=== PATIENT | female | born 1955 | race Caucasian/White ===

== ENCOUNTER 2018-05-11 10:37 | Emergency (ER) | payer BC, OTHER ==
[~2018-05-11] VITALS: Ht 170.2 cm; Wt 113.4 kg
[2018-05-11 10:54] VITALS: BP 154/87
== END 2018-05-11 11:39 | disposition home or self-care (01) ==
LOC: ER 10:40
DX: I10 Essential (primary) hypertension (principal); E78.5 Hyperlipidemia, unspecified; E07.89 Other specified disorders of thyroid; Z88.0 Allergy status to penicillin; Z88.1 Allergy status to other antibiotic agents; Z88.6 Allergy status to analgesic agent; Z90.710 Acquired absence of both cervix and uterus